=== PATIENT | male | born 1945 | race Caucasian/White ===

== ENCOUNTER 2022-03-09 09:16 | Observation (INO) ==
[2022-03-09 09:56] LABS: Basophils # 0.1 10*3/uL (0.0-0.2); Basophils % 0.5 % (0.0-0.8); Eosinophils # 0.2 10*3/uL (0.0-0.87); Eosinophils % 2.1 % (0.00-10.9); Hematocrit 46.1 VOL% (42.0-52.0); Hemoglobin 15.4 GM/DL (14.0-18.0); Immature Granulocytes % 0.5 %; Immature Granulocytes Absolute 0.05 #; Lymphocytes # 1.8 10*3/uL (1.4-4.0); Lymphocytes % 17.2 % (21.2-54.2); Mean Corpuscular HGB Conc 33.4 GM/DL (32-36); Mean Platelet Volume 10.9 FL (9.6-12.0); Monocytes % 9.5 % (1.7-12.7); Neutrophils % 70.2 % (38.7-73.9); Platelet Count 163 T/CUMM (130-400); Red Blood Count 5.18 MC/CUMM (3.8-5.5); Red Cell Distribution Width 13.6 % (9.3-17.3); White Blood Count 10.2 T/CUMM (4-12)
[2022-03-09 10:06] LABS: INR 0.9; PT Patient Result 10.3 SECS (10.1-12.1)
[2022-03-09 10:12] LABS: RBC,Urine 2 /HPF (0-4); Squamous Epithelial Cell,Urine Occasional /HPF (0-10)
[2022-03-09 10:19] LABS: Barbiturates Screen,Urine Negative (Negative); Benzodiazepines Screen,Urine Negative (Negative); Cannabinoid Screen,Urine Negative (Negative); Opiate Screen,Urine Negative (Negative); Phencyclidine Screen,Urine Negative (Negative)
[2022-03-09 10:20] LABS: Albumin 3.8 G/DL (3.4-5.0); Bilirubin,Total 1.1 MG/DL (0.20-1.00); Calcium 8.7 MG/DL (8.5-10.1); Osmolality,Calculated 288.8 MOS/KG (273-304); Potassium 4.3 MMOL/L (3.5-5.1); Total Protein 6.8 G/DL (6.4-8.2)
[2022-03-09 10:22] LABS: Bilirubin,Urine Negative (Negative); Blood, Urine Trace mg/dL (Negative); Glucose,Urine (UA) Negative (Negative); Ketones,Urine Negative (Negative); Nitrite,Urine Negative (Negative); Protein,Urine 100 mg/dL (Negative); Urine Appearance Clear (Clear); Urine Color Yellow (Yellow); Urine Specific Gravity 1.025 (1.001-1.035)
[2022-03-09] MEDS ORDERED: ONDANSETRON 4 MG/2 ML VIAL IV PRN (11:29)
[2022-03-09] MEDS ORDERED: diphenhydrAMINE CAP 25 MG CAPSULE PO PRN (11:29)
[2022-03-09] MEDS ORDERED: PROMETHAZINE 25 MG TABLET PO PRN (11:29)
[2022-03-09] MEDS ORDERED: MAGNESIUM SULF RIDER 2 GM/50 ML PREMIX IV PRN (11:29)
[2022-03-09] MEDS ORDERED: ALUMINUM/MAGNES/SIMETH MAX STR 30 ML UDCUP PO PRN (11:29)
[2022-03-09] MEDS ORDERED: MAGNESIUM SULF RIDER 4 GM/100 ML PREMIX IV PRN (11:29)
[2022-03-09] MEDS ORDERED: DOCUSATE SODIUM 100 MG CAPSULE PO PRN (11:29)
[2022-03-09] MEDS ORDERED: ZALEPLON 5 MG CAPSULE PO PRN (11:29)
[2022-03-09] MEDS ORDERED: POTASSIUM CHLORIDE 20 MEQ TABLET PO PRN (11:29)
[2022-03-09] MEDS ORDERED: guaiFENesin/DM ER 600-30 MG TABLET PO PRN (11:29)
[2022-03-09] MEDS: hydrALAZINE 20 MG/1 ML VIAL IV PRN ×2 (13:27→20:39)
[2022-03-09] MEDS: ACETAMINOPHEN 325 MG TABLET PO PRN (14:56)
[2022-03-09] MEDS ORDERED: hydrALAZINE 20 MG/1 ML VIAL IV ONE (15:02)
[2022-03-09] MEDS ORDERED: amLODIPine 5 MG TABLET PO ONE (16:22)
[2022-03-09] MEDS: LOSARTAN 50 MG TABLET PO SCH (20:38)
[2022-03-09] MEDS ORDERED: LABETALOL 20 MG/4 ML SYRINGE IV PRN (22:08)
[2022-03-10] MEDS: ACETAMINOPHEN 325 MG TABLET PO PRN ×4 (00:37→20:35)
[2022-03-10] MEDS: hydrALAZINE 20 MG/1 ML VIAL IV PRN ×3 (00:39→20:36)
[2022-03-10 05:02] LABS: Basophils % 0.3 % (0.0-0.8); Eosinophils % 0.2 % (0.00-10.9); Hematocrit 43.2 VOL% (42.0-52.0); Hemoglobin 14.2 GM/DL (14.0-18.0); Immature Granulocytes % 0.5 %; Immature Granulocytes Absolute 0.06 #; Lymphocytes # 1.1 10*3/uL (1.4-4.0); Lymphocytes % 9.4 % (21.2-54.2); Mean Corpuscular HGB Conc 32.9 GM/DL (32-36); Mean Corpuscular Volume 90.6 FL (87-102); Mean Platelet Volume 11.2 FL (9.6-12.0); Monocytes % 8.6 % (1.7-12.7); Platelet Count 160 T/CUMM (130-400); Red Blood Count 4.77 MC/CUMM (3.8-5.5); Red Cell Distribution Width 13.6 % (9.3-17.3); White Blood Count 11.6 T/CUMM (4-12)
[2022-03-10 05:25] LABS: Albumin 3.2 G/DL (3.4-5.0); Bilirubin,Total 0.9 MG/DL (0.20-1.00); Calcium 8.7 MG/DL (8.5-10.1); Total Protein 6.2 G/DL (6.4-8.2); VLDL Cholesterol 11.2 MG/DL
[2022-03-10] MEDS: amLODIPine 5 MG TABLET PO SCH ×2 (09:50→11:55)
[2022-03-10] MEDS: LOSARTAN 50 MG TABLET PO SCH ×3 (09:50→20:35)
[2022-03-10] MEDS: PANTOPRAZOLE 40 MG TABLET PO SCH (09:50)
[2022-03-10] MEDS ORDERED: TISSUE ADHESIVE 1 EACH APPLICATOR TOP ONE (11:19)
[2022-03-10] MEDS ORDERED: ceFAZolin 1,000 MG VIAL ONE ×2 (11:20)
[2022-03-10] MEDS ORDERED: ceFAZolin 1,000 MG VIAL IRRIG ONE (11:59)
[2022-03-10] MEDS ORDERED: diphenhydrAMINE CAP 25 MG CAPSULE PO ONE (11:59)
[2022-03-10] MEDS ORDERED: DIAZEPAM 5 MG TABLET PO ONE (11:59)
[2022-03-10] MEDS ORDERED: fentaNYL 100 MCG/2 ML VIAL ONE (12:37)
[2022-03-10] MEDS ORDERED: MIDAZOLAM 2 MG/2 ML VIAL ONE ×2 (12:37→12:58)
[2022-03-10] MEDS ORDERED: PROMETHAZINE 25 MG/1 ML VIAL ONE (13:23)
[2022-03-10] MEDS ORDERED: HYDROmorphone 1 MG/1 ML SYRINGE ONE (13:31)
[2022-03-10] MEDS ORDERED: hydrALAZINE 20 MG/1 ML VIAL ONE (14:02)
[2022-03-10] MEDS ORDERED: METOPROLOL TARTRATE 25 MG TABLET PO ONE (16:02)
[2022-03-11 05:32] LABS: Basophils # 0.1 10*3/uL (0.0-0.2); Basophils % 0.3 % (0.0-0.8); Eosinophils # 0.1 10*3/uL (0.0-0.87); Eosinophils % 0.4 % (0.00-10.9); Hematocrit 45.7 VOL% (42.0-52.0); Hemoglobin 14.7 GM/DL (14.0-18.0); Immature Granulocytes % 0.8 %; Immature Granulocytes Absolute 0.11 #; Lymphocytes % 13.5 % (21.2-54.2); Mean Corpuscular HGB Conc 32.2 GM/DL (32-36); Mean Platelet Volume 10.6 FL (9.6-12.0); Monocytes # 1.6 10*3/uL (0.11-0.8); Monocytes % 10.8 % (1.7-12.7); Neutrophils % 74.2 % (38.7-73.9); Platelet Count 177 T/CUMM (130-400); Red Blood Count 4.97 MC/CUMM (3.8-5.5); Red Cell Distribution Width 14.2 % (9.3-17.3); White Blood Count 14.6 T/CUMM (4-12)
[2022-03-11 05:46] LABS: Calcium 8.2 MG/DL (8.5-10.1); Osmolality,Calculated 288.1 MOS/KG (273-304); Potassium 4.2 MMOL/L (3.5-5.1)
[2022-03-11] MEDS: ACETAMINOPHEN 325 MG TABLET PO PRN (07:46)
[2022-03-11] MEDS: hydrALAZINE 20 MG/1 ML VIAL IV PRN (07:46)
[2022-03-11] MEDS ORDERED: amLODIPine 5 MG TABLET PO SCH (09:00)
[2022-03-11] MEDS: PANTOPRAZOLE 40 MG TABLET PO SCH (09:07)
[2022-03-11] MEDS: LOSARTAN 50 MG TABLET PO SCH (09:07)
[2022-03-11] MEDS ORDERED: METOPROLOL TARTRATE 25 MG TABLET PO SCH (09:26)
[2022-03-11 11:33] VITALS: BP 191/82
== END 2022-03-11 12:30 | disposition home or self-care (01) ==
LOC: N.TELES 09:16 → N.ED 09:16 → N.TELES 17:00
PROVIDERS: ADMIT Internal Medicine Cardiovascular Disease; ATTEND Internal Medicine Cardiovascular Disease